=== PATIENT | female | born 1965 | race Caucasian/White ===

== ENCOUNTER 2017-07-31 19:40 | Emergency (ER) | payer OTHER ==
[~2017-07-31] VITALS: Ht 162.6 cm; Wt 54.9 kg
--- NOTE | 2017-07-31 23:08 | ED GENERAL ADULT ---
History of Present Illness General Chief Complaint: General Adult Stated Complaint: ?FLU Source: patient, family Exam Limitations: no limitations Vital Signs & Intake/Output Vital Signs & Intake/Output Vital Signs Date Time Temp Pulse Resp B/P B/P Pulse O2 O2 Flow FiO2 Mean Ox Delivery Rate 08/01 0045 97.7 68 20 116/68 07/31 2000 100.9 07/31 1944 100.9 104 18 108/74 96 Room Air ED Intake and Output 08/01 0000 07/31 1200 Intake Total Output Total Balance Patient 121 lb Weight Weight Reported by Patient Measurement Method Allergies Coded Allergies: No Known Allergies (07/31/17) Reconcile Medications Hyoscyamine Sulfate (Levsin-Sl) 0.125 MG TAB.SUBL 1-2 TAB SL Q4P PRN ABDOMINAL SPASMS Ondansetron (Zofran Odt) 4 MG TAB.RAPDIS 1 TAB SL TID PRN NAUSEA Triage Note: PT FROM HOME C/O FLU LIKE S/S PER PT. PT STATES N/V/D 10+ EPISODES SINCE SATURDAY. PT DENIES EATING OR DRINKING. PT LETHARGIC SINCE SATURDAY. PT STATES SHE WAS NOT SEEN BY A PCP OR WALK-IN. PT FEBRILE IN TRIAGE 100.9. PT DENIES SELF MEDICATING AT HOME WITH ANYTHING. Triage Nurses Notes Reviewed? yes Onset: Gradual Duration: day(s): (3) Timing: remote history Injury Environment: home Severity: moderate No Modifying Factors: none HPI: Patient is a 52-year-old female presenting to the emergency Department chief complaint of nausea vomiting and diarrhea, generalized malaise and body aches has been going on for the past 3 days. Denies taking anything at home to help with symptoms. Positive tactile fevers at home. No sick contacts or recent travel. Denies recent antibiotic use. Patient reports that she feels rundown. Unable to keep anything down orally. She reports 5-6 episodes of diarrhea daily. Nonbloody nonbilious. (Mary SANCHEZ,Funmilayo) Past History Travel History Traveled to [place] past 21 day No Medical History Any Pertinent Medical History? see below for history Neurological: NONE EENT: NONE Cardiovascular: NONE Respiratory: NONE Gastrointestinal: NONE Hepatic: NONE Renal: NONE Musculoskeletal: NONE Psychiatric: NONE Endocrine: NONE Surgical History Surgical History: non-contributory Psychosocial History What is your primary language Welsh Tobacco Use: Current Daily Use Daily Tobacco Use Amount/Type: => 5 Cigarettes daily ETOH Use: denies use Illicit Drug Use: denies illicit drug use Family History Hx Contributory? No (Funmilayo Scott) Review of Systems Review of Systems Constitutional: Reports: see HPI, chills, fever, malaise. Comments Review of systems: See HPI, All other systems negative. Constitutional, nO weight loss HEENT: No visual changes no sore throat no congestion Cardiovascular: No chest pain ,palpitation , orthopnea or ankle swelling Skin, no jaundice no rashes Respiratory: No dyspnea cough sputum or hemoptysis GI: POS N/V/D : No dysuria No hematuria Muscle skeletal: no back pain, no neck pain, Neurologic: No numbness no confusion Psych: No stress anxiety or depression,. Heme/endocrine: No bruising no bleeding no polyuria or polydipsia Immunology: No splenectomy or history of AIDS (Funmilayo Scott) Physical Exam Physical Exam General Appearance: well developed/nourished, no apparent distress, alert, awake , comfortable Comments: Well-developed well-nourished person in no acute distress HEENT: Pupils equally round and reactive to light and accommodation. Nose is atraumatic. External auditory canal and Tympanic membranes clear. Pharynx normal. No swelling or edema. Neck: Supple, NO lymphadenopathy, normal range of motion without pain or tenderness Back: Nontender, no CVA tenderness. Cardiovascular: Regular rate and rhythms no murmurs rubs or gallops, normal JVP Respiratory: No respiratory distress.breath sounds slightly diminished to auscultation bilaterally Abdomen: Soft, nontender nondistended, no appreciable organomegaly. Normal bowel sounds. No ascites, no rebound or guarding. No right lower abdominal pain to palpation. Extremity: No edema Neuro: Alert oriented x3 Skin: No appreciable rash on exposed skin, skin is warm and dry. Psych: Mood and affect is normal, memory and judgment is normal. Core Measures ACS in differential dx? No CVA/TIA Diagnosis: No Sepsis Present: No Sepsis Focused Exam Completed? No (Funmilayo Scott) Progress Differential Diagnoses I considered the following diagnoses in my evaluation of the patient: Influenza , gastroenteritis, viral syndrome, electrolyte abnormality, pneumonia, bronchitis Plan of Care: Orders Procedure Date/time Status LIPASE 07/31 2316 Complete COMPREHENSIVE METABOLIC PANEL 07/31 2316 Complete CBC WITHOUT DIFFERENTIAL 07/31 2316 Complete RAPID VIRAL INFLUENZA A 07/31 1949 Complete Laboratory Tests 07/31/17 2350: Anion Gap 16, Estimated GFR > 60, BUN/Creatinine Ratio 21.7, Glucose 117 H, Calcium 9.4, Total Bilirubin 0.8, AST 26, ALT 30, Alkaline Phosphatase 85, Total Protein 7.3, Albumin 4.2, Globulin 3.1, Albumin/Globulin Ratio 1.4, Lipase 29, CBC w Diff MAN DIFF ORDERED, RBC 4.61, MCV 87.3, MCH 29.2, RDW 13.0, MPV 8.2, Gran % 84.9 H, Lymphocytes % 6.9 L, Monocytes % 7.9, Eosinophils % 0, Basophils % 0.3, Absolute Granulocytes 12.6 H, Segmented Neutrophils 81 H, Band Neutrophils 1, Absolute Lymphocytes 1.0 L, Lymphocytes 12 L, Monocytes 6, Absolute Monocytes 1.2 H, Absolute Eosinophils 0, Absolute Basophils 0, Platelet Estimate ADEQUATE, Normocytic RBCs VERIFIED, Normochromic RBCs VERIFIED , PUBS MCHC 33.4 Microbiology 07/31 1950 NASOPHARYN: Influenza Virus A & B Rapid Smear - COMP Diagnostic Imaging: Viewed by Me: Radiology Read. Discussed w/RAD: Radiology Read. Radiology Impression: PATIENT: MEJIA BLOOM PRESENT AGE: 52 PATIENT ACCOUNT NO: [id number] : 65 LOCATION: [facility] ORDERING PHYSICIAN: Funmilayo SANCHEZ SERVICE DATE: 07/31/17 EXAM TYPE: RAD - XRY-CHEST XRAY, TWO VIEWS EXAMINATION: XR CHEST CLINICAL INFORMATION : Fever. Weakness. COMPARISON: 09/02/2009 TECHNIQUE: 2 views of the chest were obtained. FINDINGS: The lungs are well expanded. There is no focal consolidation , edema, or effusion. No pneumothorax. The cardiomediastinal silhouette is within normal limits. No acute osseous abnormality. IMPRESSION: No acute pulmonary findings. DICTATED BY: Robert Fagan MD DATE/TIME DICTATED:10 TALLOW REFINER:PATRIC DATE/TIME TRANSCRIBED:08/01/1710 CONFIDENTIAL, DO NOT COPY WITHOUT APPROPRIATE AUTHORIZATION. <Electronically signed in Other Vendor System> SIGNED BY: Robert Fagan MD 08/01/1715 Initial ED EKG: none Comments: Patient feeling much improved after IV hydration, Toradol and Zofran. Patient tolerating by mouth without nausea or vomiting. Abdomen is still soft and nontender. Likely viral syndrome. Patient will be treated symptomatically. Patient nontoxic. Vitals are stable. (Funmilayo Scott) Departure Departure Time of Disposition: 42 Disposition: HOME OR SELF CARE Condition: Stable Clinical Impression Primary Impression: Nausea vomiting and diarrhea Secondary Impressions: Hypokalemia Referrals: Stephanie REBOLLAR,Nicole Sanabria (PCP/Family) Additional Instructions: Follow-up with your primary care physician in the next 1-2 days call to make an appointment. Increase fluids. Take Zofran and Levsin help with abdominal spasms and nausea. Return for worsening symptoms or concerns. Departure Forms: Customer Survey D/C INS-APPENDICITIS EXCLUSION General Discharge Information Prescriptions: Current Visit Scripts Hyoscyamine Sulfate (Levsin-Sl) 1-2 TAB SL Q4P PRN ABDOMINAL SPASMS #20 TAB Ondansetron (Zofran Odt) 1 TAB SL TID PRN NAUSEA #10 TAB (Funmilayo Scott) PA/PROPOSAL ENGINEER Co-Sign Statement Statement: ED Attending supervision documentation- [] I saw and evaluated the patient. I have also reviewed all the pertinent lab results and diagnostic results. I agree with the findings and the plan of care as documented in the PA's/PROPOSAL ENGINEER's documentation. [X] I have reviewed the ED Record and agree with the PA's/PROPOSAL ENGINEER's documentation. [] Additions or exceptions (if any) to the PAs/PROPOSAL ENGINEER's note and plan are summarized below: [] (Mikie REBOLLAR,Alexia) Critical Care Note Critical Care Note Critical Care Time: non-applicable (Funmilayo Scott)
[2017-08-01 00:09] LABS: ABSOLUTE BASOPHIL COUNT 0 /CUMM (0.0-0.2); ABSOLUTE EOSINOPHIL COUNT 0 /CUMM (0.0-0.7); ABSOLUTE GRANULOCYTE CT 12.6 /CUMM (1.4-6.5); ABSOLUTE MONOCYTE COUNT 1.2 /CUMM (0.10-0.60); BASOPHIL % 0.3 % (0.0-2.0); EOSINOPHIL % 0 % (0-5); GRANULOCYTE % 84.9 % (42.2-75.2); HEMATOCRIT 40.3 % (37-47); MEAN CORPUSCULAR HGB 29.2 PG (27.0-31.0); MEAN CORPUSCULAR HGB CONC 33.4 G/DL (33.0-37.0); MEAN CORPUSCULAR VOLUME 87.3 FL (81.0-99.0); MEAN PLATELET VOLUME 8.2 FL (7.4-10.4); PLATELET COUNT 284 /CUMM (130-400); RED BLOOD CELL CT 4.61 /CUMM (4.20-5.40); WHITE BLOOD CELL COUNT 14.9 /CUMM (4.8-10.8)
--- NOTE | 2017-08-01 00:16 | RADIOLOGY REPORT ---
EXAMINATION: XR CHEST CLINICAL INFORMATION: Fever. Weakness. COMPARISON: 09/02/2009 TECHNIQUE: 2 views of the chest were obtained. FINDINGS: The lungs are well expanded. There is no focal consolidation, edema, or effusion. No pneumothorax. The cardiomediastinal silhouette is within normal limits. No acute osseous abnormality. IMPRESSION: No acute pulmonary findings.
[2017-08-01] MEDS ORDERED: LEVSIN-SL0.125 MG SL (00:30)
[2017-08-01] MEDS ORDERED: ZOFRAN ODT4 M1 SL (00:30)
[2017-08-01 00:45] VITALS: BP 116/68
== END 2017-08-01 00:50 ==
LOC: ERH 19:40
PROVIDERS: Physician Assistant
DX: R11.2 Nausea with vomiting, unspecified (principal); R19.7 Diarrhea, unspecified; E87.6 Hypokalemia
CPT/HCPCS: 71046; 87804; 87804-59; 96361; 96374; J1885